=== PATIENT | female | born 1960 | race Caucasian/White ===

== ENCOUNTER 2018-03-28 14:19 | Outpatient (CLI) | payer OTHER ==
--- NOTE | 2018-03-28 15:30 | XRAY Report ---
Reason: COUGH Procedure Date: 03/28/2018 Accession Number: [id number] / [id number] Procedure: XR - Chest 2 View X-Ray CPT Code: 19862 FULL RESULT: EXAM: CHEST RADIOGRAPHY EXAM DATE: 03/28/2018 02:29 PM. CLINICAL HISTORY: Cough. Persistent cough for one year. COMPARISON: 04/21/2014 12:56 PM. TECHNIQUE: 2 views. FINDINGS: Lungs/Pleura: No focal opacities evident. No pleural effusion. No pneumothorax. Normal volumes. Mediastinum: Heart and mediastinal contours are unremarkable. Other: There is a mild S-shaped thoracolumbar scoliosis the etiology of which is not completely visualized. IMPRESSION: Stability of the cardiopulmonary exam compared to 2014 with no acute airspace disease. RADIA
== END 2018-03-28 14:20 | disposition home or self-care (01) ==
LOC: DI 14:19
PROVIDERS: ATTEND Registered Nurse
DX: R05 Cough (principal); M41.84 Other forms of scoliosis, thoracic region
CPT/HCPCS: 71046

== ENCOUNTER 2020-06-08 13:31 | Outpatient (CLI) | payer OTHER ==
[2020-06-09 10:21] VITALS: BP 145/96
--- NOTE | 2020-06-09 10:21 | SLEEP CARE CONSULTATION ---
Information from patient questionnaire entered by Yuri Weiss. I have reviewed and concur with the information entered by Yuri Weiss. This document represents the service I personally performed and the decisions made by me, Erasmo Cruz MD, [facility]. History of Present Illness Service Date and Time: 06/08/2020 1331 Reason for Visit: New patient Chief Complaint: reports: Unrefreshed sleep, Excessive daytime sleepiness Date of Onset: Over 6 months Usual bedtime: 10:00 pm Time it takes to fall asleep: 1/2 hr + on Observed to quit breathing while asleep: No Number of times waking at night: 1 x Reasons for waking at night: reports: Choking, Bathroom Recalls having dreams: Yes Usually gets out of bed at: week days 6:00 AM, days off 8 AM Morning headache: No Sleepy or fatigued during the day: Yes Ever fallen asleep while driving: No Takes day naps: Yes Dreams during day naps: No Prior sleep studies: No Additional HPI information: I have the pleasure of seeing Ms. Dwyer today regarding the possibility of her having obstructive sleep apnea. As you know, she is a 59 year old lady who complains of unrefreshed sleep and excessive daytime sleepiness for the past 6 months. The patient tells me that she normally goes to bed around 10 pm, and it takes her approximately 30 minutes to fall asleep. She has been told that she snores loudly and irregularly at night. She has never been observed to stop breathing in her sleep. However, she sleeps alone. She can recall waking up on the average of 1 time during the night. Most of the time she wakes up because of having to use the bathroom. She has awakened occasionally because of her own snoring, choking, and having to gasp for air. There is not a lot of tossing and turning in her sleep. No somniloquy (sleep talking) or somnambulism (sleep walking). Generally she can recall having dreams. In the morning she usually gets up out of the bed around 6 - 8 a.m. not feeling refreshed nor rested. She usually does not have a morning headache. During the day she complains of feeling sleepy and fatigued. Her score on [place] Sleepiness Scale is 10 out of 24. She never has fallen asleep while driving nor has had any accident due to sleepiness. She usually takes a nap during the day on the weekends. Upon falling asleep during the day she denies having vivid dreams. She has never had sleep paralysis, experienced cataplexy but reports symptoms of restless leg syndrome. She reports having impaired concentration during the day. 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 Patient is and lives in [place]. Have you smoked in the past 12 months: No Alcohol use: No Caffeine use: Yes Caffeine amount and frequency: 2 cups of coffee in AM Family History Family history of sleep disordered breathing: No (Not sure) Allergies and Home Medications Drug allergies reviewed: Yes Home medication list reviewed: Yes (sertraline) Review of Systems Weight gain over past 5 years: 40 Cardiovascular: reports: high blood pressure Respiratory: reports: chronic cough Gastrointestinal: denies: heartburn, difficulty swallowing, nausea, vomitting, d iarrhea, abdominal pain, other Urinary: reports: urgency Neurological: denies: headaches, seizure, head trauma, disorientation, speech dysfunction, gait or balance problems, fainting or unconsciousness, other Psychiatric: reports: anxiety, depression Ear/Nose/Throat: reports: dry mouth/throat, wisdom teeth removed Endocrine: reports: sluggishness (tired), too hot or cold Musculoskeletal: reports: neck pain Immunologic: denies: sneezing, rash, itching, allergies to food or environment, other Physical Exam Vital signs obtained and entered by: Dr. Cruz Blood Pressure: 145/96 Heart Rate: 84 O2 Saturation: 98 Height: 5 ft 8 in Weight: 206 lb Body Mass Index: 31.3 BMI Classification: Obese Neck circumference: 15 Mood/affect: normal HEENT: No craniofacial malformation Nostrils: patent to airflow Turbinates: normal Septum: midline Mouth and throat: narrow oropharynx Soft palate: long Hard palate: normal Uvula: normal Uvula visualization: 50% Mallampati Class II Tongue: normal in size Tonsils: small Chin and jaw: normal size and position Neck: normal w/o lymphadenopathy or thyromegaly Heart: regular rate and rhythm Lungs: clear bilaterally Extremities: no edema or clubbing Neurologic: no focal deficits Impression and Plan IMPRESSION: 1. Obstructive Sleep Apnea-Hypopnea Syndrome, as evident by history of loud snoring, nocturnal choking, unrefreshed sleep, cognitive impairment, and daytime hypersomnolence. Narrow oropharynx and obesity are common predisposing factors for obstructive sleep apnea-hypopnea syndrome. Untreated obstructive sleep apnea can also cause hypertension. I recommend proceeding to polysomnography to confirm the diagnosis and to assess severity. I informed the patient of what the sleep studies involve and after some discussion, she agreed to proceed. Plan: 1. Schedule an in-laboratory polysomnography and return in 1 to 2 weeks after the study to discuss result and initiate therapy. 2. Avoid long distance driving or when feeling sleepy. 3. Avoid alcohol, sedative and muscle relaxant around bedtime. 4. Attempt to lose weight. Follow up recommended for: Weight management Visit Type: In Office Time Spent with Patient (minutes): 15 Provider Statement: I spent 100% of the Face to Face Visit with the patient with greater than 50% spent counseling the patient and coordination of care.
== END 2020-06-08 13:32 | disposition home or self-care (01) ==
LOC: SC 13:31
PROVIDERS: ATTEND Internal Medicine Pulmonary Disease
DX: G47.10 Hypersomnia, unspecified (principal); R41.89 Other symptoms and signs involving cognitive functions and awareness; G47.8 Other sleep disorders; R06.83 Snoring; E66.9 Obesity, unspecified; Z68.31 Body mass index [BMI] 31.0-31.9, adult
CPT/HCPCS: 99202; 99212

== ENCOUNTER 2020-06-22 11:05 | Outpatient (CLI) | payer OTHER ==
--- NOTE | 2020-06-22 12:47 | CT Report ---
PROCEDURE: CHEST WO INDICATIONS: Cough TECHNIQUE: Noncontrast 5 mm thick sections acquired from the pulmonary apices to the posterior costophrenic angl es. 7 mm thick coronal and sagittal MIP reformats were then acquired. For radiation dose reduction, the following was used: automated exposure control, adjustment of mA and/or kV according to patient size. COMPARISON: None. FINDINGS: Image quality: Excellent. Lungs and pleura: No acute air space opacities. No pleural effusions or pneumothorax. Diffuse wilton bronchial cuffing suggestive of nonspecific bronchitis and/or reactive airways disease. Mediastinum: Heart size is normal. No pericardial effusion. No mediastinal adenopathy by size cri teria. Thoracic aorta and central pulmonary arteries are normal in size. Esophagus is normal in christian iber. Small hiatal hernia. Bones and chest wall: No suspicious bony lesions. Scattered multilevel endplate spurring and diffuse facet arthropathy. No vertebral body compression fractures. No axillary or supraclavicular adenopathy by size criteri a. The thyroid is normal in size. Abdomen: Visualized upper abdominal solid organs and bowel loops appear normal in the absence of con trast. IMPRESSION: No acute consolidation. Mild scarring/atelectasis. Diffuse peribronchial cuffing suggestive of nonspecific bronchitis and/or reactive airways disease. Small hiatal hernia. Reviewed by: Kavon Moyer MD on 06/22/2020 12:46 PM PST Approved by: Kavon Moyer MD on 06/22/2020 12:46 PM PST Station ID: [id number]
== END 2020-06-22 11:06 | disposition home or self-care (01) ==
LOC: DI 11:05
PROVIDERS: ATTEND Registered Nurse
DX: R05 Cough (principal); J98.11 Atelectasis; K44.9 Diaphragmatic hernia without obstruction or gangrene

== ENCOUNTER 2020-11-13 20:42 | Outpatient (CLI) | payer OTHER | END 2020-11-13 20:43 | disposition home or self-care (01) | LOC: SC 20:42 | PROVIDERS: ATTEND Nurse Practitioner Family | DX: G47.33 Obstructive sleep apnea (adult) (pediatric) (principal); G47.61 Periodic limb movement disorder; E66.3 Overweight; Z68.31 Body mass index [BMI] 31.0-31.9, adult | CPT/HCPCS: 95810 ==

== ENCOUNTER 2020-12-09 13:50 | Outpatient (CLI) | payer OTHER ==
--- NOTE | 2020-12-09 14:48 | SLEEP CARE CONSULTATION ---
Information from patient questionnaire entered by Dee Lewis. I have reviewed and concur with the information entered by Dee Lewis. This document represents the service I personally performed and the decisions made by , Rohini Crowley ARNP. History of Present Illness Service Date and Time: 12/09/2020 1350 Initial [place] Sleepiness Scale score: 10 (in 2020) Current [place] Sleepiness Scale score: 9 Additional HPI information: IRENA CHRISTENSEN returns for follow up and results of the recently performed polysomnography. I explained the pathophysiology behind obstructive sleep apnea. We then spent quite a bit of time discussing different treatment options. For mild obstructive sleep apnea, surgery and oral appliance are alternatives to nasal CPAP therapy but in moderate or severe cases, nasal CPAP is the most effective and reliable treatment. Because apnea is primarily in supine position, then positional management therapy could be effective. Methods discussed such as positioning with pillows, using a T-shirt with tennis balls in the back, and shown commercial products that have a pillow format on back to prevent supine sleep. I reviewed the impact of weight changes on sleep apnea and strongly recommended losing weight. After some discussion, the patient opted to go with the nasal CPAP therapy. Nasal autoCPAP set at 4-15 cmH20 will be ordered with rationale explained. A manual titration study will be ordered if unable to find optimal pressure with office adjustments. I explained how CPAP machine works with sample devices Respironics Dreamstation and ResSightCall [id number] and what to expect when using the machine. Using CPAP every night in order to get used to it was emphasized. Patient advised to put CPAP mask on before getting into bed so as not to fall asleep without CPAP. To assist acclimation to CPAP use, it could also be used for a short time during day while reading or watching TV. The patient was instructed to call the CPAP supplier to discuss any mechanical problem that may occur. If the mask given is uncomfortable or is difficult to keep on through the night even with adjustment, contact the CPAP supplier as many will replace with another mask style if notified before 30 days. If snoring or perceives is not getting enough air or too much air from the machine, notify this office. [facility] patient education PAP tips and Non Pap treatment pamphlets reviewed and given to patient. Patient does not drink alcohol. Patient was cautioned about risks of drowsy driving until sleepiness symptoms resolve. Sleep Study - Results Type of Sleep Study: Polysomnography Prior sleep studies: No Polysomnography/Home Sleep Study results: IMPRESSION: The quality of the study is good. The patient had normal sleep efficiency. The sleep architecture was abnormal for sleep fragmentation and reduced amount of time spent in REM sleep. Respiratory monitoring showed severe obstructive sleep apnea-hypopnea (AHI = 30.3) associated with frequent arousals, oxyhemoglobin desaturation and mild hypoxia (chet oxygen saturation of 82%). The patient did not sleep supine during this study (supine AHI = 0.0; non-supine = 30.33). Snore was light to loud in intensity. There was severe periodic leg movement of sleep contributing to the sleep fragmentation.. Cardiac rhythm was normal sinus rhythm without significant arrhythmia. No abnormal behavior (parasomnia) observed during the night. Allergies and Home Medications Home medication list reviewed: Yes (no changes) Review of Systems Review of systems same as previous: Yes (no changes) Physical Exam Heart Rate: 73 O2 Saturation: 97 Height: 5 ft 8 in Weight: 198 lb 12.8 oz Body Mass Index: 30.2 BMI Classification: Obese Impression and Plan 1. Obstructive Sleep Apnea-Hypopnea Syndrome, severe, with lowest oxygen saturation of 82%. Obviously this is the cause of the patients symptoms of unrefreshed sleep, and excessive daytime sleepiness. Positive pressure therapy could benefit anxiety and depression. As mentioned above, the patient will be started on nasal autoCPAP therapy with pressure set at 4-15 cmH2O. A manual titration study will be completed if unable to find optimal treatment pressure with office adjustments. Compliance guidelines also reviewed. A copy of compliance guidelines will be given for reference at check out. 2. Periodic limb movement, severe, that did fragment patients sleep. Periodic limb movement of sleep (PLMS) is characterized by episodes of repetitive limb movements that occur during sleep and usually involve the lower limbs. The etiology is unknown but can be associated with restless leg syndrome (RLS), neuropathy, spinal cord diseases, kidney disease, rheumatological disorders, narcolepsy, obstructive sleep apnea, and REM sleep behavior disorder. Other factors that can increase PLMS and/or RLS are heredity and iron deficiency as reflected by a low serum ferritin level below 50 to 75mcg / L. Patient was advised that no treatment is needed at this time. If symptoms increase, then further evaluation is indicated. * Nasal auto CPAP therapy, pressure at 4-15 cm H2O. * Attempt to lose weight. * Avoid alcohol consumption near bedtime. * Avoid supine sleep until using CPAP. * The patient is again cautioned about driving until sleepiness completely resolves. * Return one month after CPAP obtained. I will assess response to therapy and compliance at that time. Counseling Topics: Weight loss health impact Visit Type: In Office Time Spent with Patient (minutes): 20 Provider Statement: I spent 100% of the Face to Face Visit with the patient with greater than 50% spent counseling the patient and coordination of care.
== END 2020-12-09 13:51 | disposition home or self-care (01) ==
LOC: SC 13:50
PROVIDERS: ATTEND Nurse Practitioner Family
DX: G47.33 Obstructive sleep apnea (adult) (pediatric) (principal); E66.9 Obesity, unspecified; Z68.30 Body mass index [BMI] 30.0-30.9, adult
CPT/HCPCS: 99212; 99213